=== PATIENT | female | born 1970 | race Caucasian/White ===

== ENCOUNTER 2016-09-30 11:30 | Emergency (ER) | payer BC, OTHER ==
[~2016-09-30] VITALS: Ht 165.1 cm; Wt 86.4 kg
[2016-09-30 11:37] VITALS: TEMP 36.5; Ht 165.1 cm; Wt 86.4 kg
[2016-09-30] MEDS ORDERED: MECLIZINE HCL 25 MG TAB PO STA (12:24)
[2016-09-30] MEDS ORDERED: SODIUM CHLORIDE 0.9% 1000ML 1,000 ML IV STA (12:24)
[2016-09-30] MEDS ORDERED: DIAZEPAM INJ 5 MG/ML 2 ML CARP IV STA (12:24)
[2016-09-30] MEDS ORDERED: ONDANSETRON INJ 2 MG/ML 2 ML VIAL IV STA (12:24)
[2016-09-30 12:29] VITALS: O2SAT 98
[2016-09-30 13:11] LABS: URINE APPEARANCE CLOUDY (CLEAR); URINE BILIRUBIN NEG (NEG); URINE COLOR YELLOW; URINE EPITHELIAL CELL AUTO >30 /lpf (0-5); URINE NITRITE NEG (NEG); URINE SPECIFIC GRAVITY 1.008 (1.000-1.030); UROBILINOGEN NEG (NEG)
[2016-09-30 13:16] LABS: BASO % 0.2 %; BASO ABS # 0.01 K/uL (0-0.2); COMPLETE YES; EOS % 3.4 %; HEMATOCRIT 36.9 % (37-47); LYMPH % 32.1 %; LYMPH ABS # 1.43 K/uL (1.2-3.4); MEAN CELL VOLUME 89.1 fL (80-100); MEAN CORPUSCULAR HEMOGLOBIN 30.7 pg (25-34); MEAN CORPUSCULAR HGB CONC 34.4 g/dl (32-36); MEAN PLATELET VOLUME 11.1 fL (7.4-10.4); MONO % 8.3 %; PLATELET COUNT 232 K/uL (130-400); RED BLOOD COUNT 4.14 M/uL (4.2-5.4); WHITE BLOOD COUNT 4.45 K/uL (4.8-10.8)
[2016-09-30 13:18] LABS: MANUAL MICROSCOPIC REQUIRED? NO; REVIEW REQ? YES
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
[2016-09-30 13:35] LABS: ALT/SGPT 15 U/L (12-78); AST/SGOT 15 U/L (15-37); BLOOD UREA NITROGEN 14 mg/dl (7-18); BUN/CREATININE RATIO 15.1 (10-20); CALCIUM 8.7 mg/dl (8.5-10.1); CARBON DIOXIDE 31 mmol/L (21-32); CHLORIDE 106 mmol/L (98-107); GLUCOSE 92 mg/dl (70-99); POTASSIUM 3.8 mmol/L (3.5-5.1); SODIUM 142 mmol/L (136-145)
[2016-09-30] MEDS ORDERED: CEFTRIAXONE SOD INJ 1 GM ADDVIAL IV STA (13:42)
[2016-09-30 13:46] LABS: ALKALINE PHOSPHATASE 69 U/L (45-117)
[2016-09-30] MEDS ORDERED: MECL1TAB42 PO (14:01)
[2016-09-30] MEDS ORDERED: SULFAMETHOXAZOLE/TRIMETHOPRIM DS 800/160MG TAB PO STA (14:39)
[2016-09-30] MEDS ORDERED: SULF800T23 PO (14:40)
[2016-09-30 14:48] VITALS: BP 130/70; PULSE 67; O2SAT 98
== END 2016-09-30 14:49 | disposition home or self-care (01) ==
LOC: C.EDB 11:31
DX: H81.10 Benign paroxysmal vertigo, unspecified ear (principal); I44.7 Left bundle-branch block, unspecified; J45.909 Unspecified asthma, uncomplicated; Z87.01 Personal history of pneumonia (recurrent); Z87.09 Personal history of other diseases of the respiratory system

== ENCOUNTER 2016-11-30 09:13 | Emergency (ER) | payer BC ==
[~2016-11-30] VITALS: Ht 165.1 cm; Wt 87.9 kg
[2016-11-30 09:16] VITALS: TEMP 36.7; Ht 165.1 cm; Wt 87.9 kg
[2016-11-30] MEDS ORDERED: ALBUT/IPRATROP 3MG/0.5MG NEB 3 ML VIAL INH STA (09:29)
[2016-11-30] MEDS ORDERED: PRED20TA2 PO (09:34)
--- NOTE | 2016-11-30 10:09 | DIAGNOSTIC IMAGING REPORT ---
CHEST 2 VIEWS ROUTINE CLINICAL HISTORY: cough dyspnea COMPARISON STUDY: No previous studies for comparison. FINDINGS: The bones soft tissues and hemidiaphragms are normal. The cardiomediastinal silhouette is normal. The lungs are clear. The pulmonary vasculature is normal. IMPRESSION: Negative chest. Electronically signed by: Mitchell Jerry M.D. 11/30/2016 10:07 AM Dictated Date/Time: 11/30/2016 10:07 AM
[2016-11-30] MEDS ORDERED: AZITHROMYCIN 250 MG TAB PO STA (10:26)
[2016-11-30] MEDS ORDERED: AZIT250T PO (10:32)
--- NOTE | 2016-11-30 10:33 | EMERGENCY ROOM VISIT NOTE ---
History First contact with patient: :25 Chief Complaint: RESPIRATORY PROBLEMS Stated Complaint: RUNNY NOSE, WATERY EYES, SEVERE ASTHMA Nursing Triage Summary: Pt c/o cough, wheezing, runny nose since Sunday, Prescribed prednisone at [facility] Sunday, not getting better. Sometimes earaches and watery eyes. Hx Asthma History of Present Illness The patient is a 46 year old female who presents to the Emergency Room with complaints of chest tightness and cough which started last Sunday. The patient states that she has asthma but is not on any chronic inhalers. She also has severe seasonal allergies for which she takes Yecenia. The patient admits to head congestion, intermittent ear pain and nasal congestion, runny nose and watery eyes. The patient denies any fever, chest pain. The patient states that she went to [facility] on Sunday and was prescribed prednisone and an inhaler. She did not have the money to get the inhaler prescription states that she only gets pain tomorrow. Therefore she has only been taking the prednisone. She states that her symptoms are not getting any better. Review of Systems 10 system review was performed and was negative unless stated otherwise history of present illness. Past Medical/Surgical History Medical Problems: (1) Asthma (2) Bronchitis (3) delivery delivered (4) Pneumonia Surgical Problems: (1) [place] teeth removed Family History Diabetes mellitus Heart disease Hypertension Kidney disease Kidney stones Social History Smoking Status: Never Smoker Alcohol Use: none Marital Status: single Housing Status: lives with family Occupation Status: employed Current/Historical Medications Scheduled Prednisone (Prednisone Tab), 20 MG PO BID Allergies Coded Allergies: Penicillins (Verified Allergy, Unknown, unknown, 11/30/16) Codeine (Verified Adverse Reaction, Unknown, vomitting, 11/30/16) Physical Exam Vital Signs Date Time Temp Pulse Resp B/P (MAP) Pulse Ox O2 Delivery O2 Flow Rate FiO2 11/30/16 09:19 97 Room Air 11/30/16 09:16 36.7 81 18 142/80 97 Room Air Physical Exam PHYSICAL EXAM: Vital Signs were reviewed: Reviewed Nurse's notes and agree. Oxygen saturation is 97 % on room air which is normal . GENERAL: 46-year-old female appears in no acute distress. MENTAL STATUS: Alert, oriented, coherent. EARS: Canals clear. TMs good light reflex, no erythema or fluid level noted. NOSE: Nasal mucosa with moderate erythema engorgement. PHARYNX: No erythema, no edema noted. No exudate noted. Airway is adequate. NECK: Supple, non-tender. No lymphadenopathy noted. LUNGS: Scattered rhonchi noted at the bases with clearing with cough. No wheezing noted. CARDIAC: Regular rate and rhythm without murmur. SKIN: No rashes noted. Medical Decision & Procedures ER Provider Diagnostic Interpretation: CHEST 2 VIEWS ROUTINE CLINICAL HISTORY: cough dyspnea COMPARISON STUDY: No previous studies for comparison. FINDINGS: The bones soft tissues and hemidiaphragms are normal. The cardiomediastinal silhouette is normal. The lungs are clear. The pulmonary vasculature is normal. IMPRESSION: Negative chest. Electronically signed by: Mitchell Jerry M.D. 11/30/2016 10:07 AM Medications Administered Medications (Trade) Dose Ordered Sig/Flores Route Start Time Stop Time Status Last Admin Dose Admin Albuterol/ Ipratropium (Duoneb) 3 ml NOW STAT INH 11/30/16 09:29 11/30/16 09:31 DC 11/30/16 10:08 3 ML ED Course The patient was evaluated. The patient's indication last and EMR was reviewed. The patient was given a DuoNeb. Chest x-ray was ordered and interpreted by the radiologist and myself as above without any acute findings the patient was reevaluated was feeling better. The patient was given Zithromax 500 mg by mouth while in the emergency room. She was also given a Ventolin HFA inhaler to use 2 puffs every 4 hours at home. The patient was discharged home in stable condition.. Medical Decision Differential diagnosis include asthma exacerbation, bronchitis, pneumonia Impression Primary Impression: Bronchitis Departure Information Dispostion Home / Self-Care Condition GOOD Prescriptions Azithromycin (Zithromax) 250 Mg Tab 250 MG PO DAILY for 4 Days, #4 TAB Prov: Marialuisa Jerry, MESSI 11/30/16 Referrals No Doctor, Assigned (PCP) Forms HOME CARE DOCUMENTATION FORM, IMPORTANT VISIT INFORMATION, WORK / SCHOOL INSTRUCTIONS Patient Instructions Bronchitis Acute, My [facility] Additional Instructions Continue prednisone as prescribed. Continue [id number] allergy medications as directed. Recommend [id number] allergy eyedrops. May also try gsuh-wew-[id number] steroid nasal spray in addition to taking Yecenia. Take Zithromax as prescribed. Use Ventolin HFA inhaler 2 puffs every 4 hours for 5 days then every 4 hours as needed. If symptoms are not improving in 3-4 days recommend follow-up with your family doctor.
[2016-11-30] MEDS ORDERED: ALBUTEROL HFA 8 GM INHALER INH ONE (10:45)
[2016-11-30 10:58] VITALS: BP 141/81; PULSE 71; O2SAT 96
[2016-11-30] MEDS ORDERED: ALBUTEROL HFA 8 GM INHALER INH SCH (12:00)
== END 2016-11-30 11:04 | disposition home or self-care (01) ==
LOC: C.EDB 09:15 → C.EDA 11:04
DX: J40 Bronchitis, not specified as acute or chronic (principal); J45.909 Unspecified asthma, uncomplicated; Z88.0 Allergy status to penicillin; Z88.5 Allergy status to narcotic agent; Z83.3 Family history of diabetes mellitus; Z82.49 Family history of ischemic heart disease and other diseases of the circulatory system; Z84.1 Family history of disorders of kidney and ureter